=== PATIENT | male | born 1935 | race Caucasian/White ===

== ENCOUNTER 2020-01-16 14:01 | Emergency (ER) | payer MEDICARE, OTHER ==
[~2020-01-16] VITALS: Ht 188 cm; Wt 91.6 kg
--- NOTE | 2020-01-16 14:24 | NUR ---
jesus from [facility] to er bed 12. alert and awake. brought in for hematuria. per report hematuria noted x d ays ago. awaiting md for eval.
--- NOTE | 2020-01-16 14:47 | NUR ---
urine collected and sent to lab
[2020-01-16] MEDS ORDERED: LEVO137T2 PO (14:50)
[2020-01-16] MEDS ORDERED: LORA10TA7 PO (14:50)
[2020-01-16] MEDS ORDERED: METF-440 PO (14:50)
[2020-01-16] MEDS ORDERED: ACET-868 PO (14:50)
[2020-01-16] MEDS ORDERED: ERGO500014 PO (14:50)
[2020-01-16] MEDS ORDERED: DUTA0.5C PO (14:50)
[2020-01-16] MEDS ORDERED: POLY17PO4 PO (14:50)
[2020-01-16] MEDS ORDERED: MAGN400O6 PO (14:50)
[2020-01-16] MEDS ORDERED: HYDR25TA4 PO (14:50)
[2020-01-16] MEDS ORDERED: CRAN450C PO (14:50)
[2020-01-16] MEDS ORDERED: PANT40TA2 PO (14:50)
[2020-01-16] MEDS ORDERED: TRIA15OI2 TP (14:50)
[2020-01-16] MEDS ORDERED: POLY15DR40 EACHEYE (14:50)
[2020-01-16] MEDS ORDERED: APIX5TAB PO (14:50)
[2020-01-16] MEDS ORDERED: TAMS-12 PO (14:50)
[2020-01-16] MEDS ORDERED: GABA-532 PO (14:50)
[2020-01-16 14:52] LABS: BASOPHILS # (AUTO) 0.1 /CMM (0.0-0.2); BASOPHILS % (AUTO) 0.5 % (0.0-2.0); EOSINOPHILS % (AUTO) 0.3 % (0.0-6.0); HEMATOCRIT 36 % (39-51); HEMOGLOBIN 11.3 g/dL (13.5-17.5); LYMPHOCYTES # (AUTO) 0.7 /CMM (0.8-4.8); LYMPHOCYTES % (AUTO) 6.4 % (20.0-44.0); MEAN CORPUSCULAR HGB CONC 31 g/dl (31.0-36.0); MEAN CORPUSCULAR VOLUME 84 fL (80-96); MONOCYTES # (AUTO) 0.6 /CMM (0.1-1.30); MONOCYTES % (AUTO) 5.6 % (2.0-12.0); NEUTROPHILS # (AUTO) 9.3 /CMM (1.8-8.9); NEUTROPHILS % (AUTO) 87.2 % (43.0-81.0); PLATELET COUNT (AUTO) 409 /CMM (150-450); RED BLOOD CELL COUNT(AUTO) 4.33 MIL/uL (4.5-6.0); WHITE BLOOD COUNT (AUTO) 10.6 K/uL (4.3-11.0)
[2020-01-16 14:57] LABS: CALCIUM, SERUM 9.1 mg/dL (8.5-10.1); CREATININE 1.1 mg/dL (0.6-1.3); POTASSIUM 4.5 mmol/L (3.5-5.1)
[2020-01-16 15:18] LABS: BILIRUBIN,URINE NEGATIVE (NEGATIVE); BLOOD, URINE MODERATE Ery/uL (NEGATIVE); COLOR,URINE YELLOW (YELLOW); LEUKOCYTE ESTERASE ,URINE MODERATE (NEGATIVE); NITRITE, URINE NEGATIVE (NEGATIVE); PROTEIN,URINE 100 mg/dl (NEGATIVE); UGLUCOSE NEGATIVE (NEGATIVE)
[2020-01-16] MEDS ORDERED: CEFTRIAXONE 1GM BAG (ER ONLY) 50 ML IV ONE (16:59)
[2020-01-16] MEDS ORDERED: CEFTRIAXONE 1GM BAG (ER ONLY) 1 GM/50 ML PIGGYBACK IV ONE (17:00)
[2020-01-16 17:46] LABS: BACTERIA,URINE Moderate /HPF (None Seen); SQUAMOUS EPITHELIAL CELL,UR Rare /HPF (None Seen); URINE AMORPHOUS PHOSPHATES Many /HPF (None Seen)
--- NOTE | 2020-01-16 17:47 | NUR ---
[place]SP[place] [facility] [place] [id number] [address] ETA: 2014 TRIP NUMBER: [id number]
--- NOTE | 2020-01-16 19:00 | NUR ---
PT PROVIDED A MEAL
--- NOTE | 2020-01-16 20:00 | NUR ---
SUPRA PUBIC CATH DRESSING CHANGED
--- NOTE | 2020-01-16 21:02 | NUR ---
spoke with phyllis staff at the [facility] to notify that pt is coming back. she is aware that pt is going to be on atb.
--- NOTE | 2020-01-16 21:26 | NUR ---
CALLED AMBULN FOR UPDATE ETA, 40 MIN
--- NOTE | 2020-01-16 22:37 | NUR ---
ambulance at bedside fo rpt transport to [facility]. pt is in stable condition for transport.
[2020-01-16 22:41] VITALS: BP 130/74
== END 2020-01-16 22:41 | disposition home or self-care (01) ==
LOC: ER 14:10
DX: N39.0 Urinary tract infection, site not specified (principal); F03.90 Unspecified dementia, unspecified severity, without behavioral disturbance, psychotic disturbance, mood disturbance, and anxiety; I10 Essential (primary) hypertension; K21.9 Gastro-esophageal reflux disease without esophagitis; N40.0 Benign prostatic hyperplasia without lower urinary tract symptoms; E11.9 Type 2 diabetes mellitus without complications; M19.90 Unspecified osteoarthritis, unspecified site; Z79.899 Other long term (current) drug therapy; Z79.84 Long term (current) use of oral hypoglycemic drugs
CPT/HCPCS: 36415; 80048; 81001; 85025; 87086; 96365; 99284; J0696; 87186-TC

== ENCOUNTER 2020-02-06 11:29 | Emergency (ER) | payer MEDICARE, OTHER ==
[~2020-02-06] VITALS: Ht 188 cm; Wt 83.9 kg
[~2020-02-06 11:29] MED LIST: ACET-868 PO; APIX5TAB PO; CRAN450C PO; DUTA0.5C PO; ERGO500014 PO; GABA-532 PO; HYDR25TA4 PO; LEVO137T2 PO; LORA10TA7 PO; MAGN400O6 PO; METF-440 PO; PANT40TA2 PO; POLY15DR40 EACHEYE; POLY17PO4 PO; TAMS-12 PO; TRIA15OI2 TP
--- NOTE | 2020-02-06 12:11 | NUR ---
JANNIE FROM [facility] TO ER BED 6. AAOX1. NOT IN RESP DISTRESS. BEDBOUND. BROUGHT IN FOR HEMATURIA PER AMBULANCE STAFF REPORT. UPO PRESENTATION URINE BAG IS LEAK NOTED URINE W/ SEDIMENTS. PT HAVE A SUPRAPUBIC CATH. CATH FLUSHED WITH NS, NO NOTED BLOOD IN THE URINE. URINE COLLECTED AND SENT TO LAB. URINE BAG CHANGED. CATH US PATENT. WAS AT THE BEDSIDE FOR EVAL.
[2020-02-06 12:15] LABS: BILIRUBIN,URINE Negative (NEGATIVE); COLOR,URINE YELLOW (YELLOW); LEUKOCYTE ESTERASE ,URINE Moderate (NEGATIVE); NITRITE, URINE Negative (NEGATIVE); PH,URINE 6.5 (5.0-8.0); PROTEIN,URINE Negative (NEGATIVE); UGLUCOSE Negative (NEGATIVE); UROBILINOGEN,URINE 0.2 EU/dL (0.2)
[2020-02-06 12:17] LABS: BACTERIA,URINE Few /HPF (None Seen); SQUAMOUS EPITHELIAL CELL,UR Rare /HPF (None Seen)
--- NOTE | 2020-02-06 12:57 | NUR ---
TRANSPORT [facility] CALLED ETA IS [id number]
--- NOTE | 2020-02-06 13:12 | NUR ---
anders jones at the [facility] notified for pt's return back to facility
--- NOTE | 2020-02-06 14:43 | NUR ---
SATINDER MORALES 34 AT BEDSIDE FOR PT TRANSPORT BACK TO HIS FACILITY. REPORT GIVEN
[2020-02-06 14:53] VITALS: BP 158/79
--- NOTE | 2020-02-06 14:53 | NUR ---
PT LEFT ON GURNEY WITH 3 AMBULANCE STAFF. PT IS IN STABLE CONDITION FOR TRANSPORT.
== END 2020-02-06 14:54 | disposition home or self-care (01) ==
LOC: ER 11:39
DX: N39.0 Urinary tract infection, site not specified (principal); T83.091A Other mechanical complication of indwelling urethral catheter, initial encounter; R31.9 Hematuria, unspecified; I10 Essential (primary) hypertension; E11.9 Type 2 diabetes mellitus without complications; N40.0 Benign prostatic hyperplasia without lower urinary tract symptoms; F03.90 Unspecified dementia, unspecified severity, without behavioral disturbance, psychotic disturbance, mood disturbance, and anxiety; K21.9 Gastro-esophageal reflux disease without esophagitis; E03.9 Hypothyroidism, unspecified; M19.90 Unspecified osteoarthritis, unspecified site; Z79.899 Other long term (current) drug therapy; Z79.84 Long term (current) use of oral hypoglycemic drugs
CPT/HCPCS: 81001; 87086-TC; 87186-TC